=== PATIENT | male | born 1995 | race American Indian/Alaskan Native ===

== ENCOUNTER 2021-11-04 21:43 | Emergency (ER) | payer SELFPAY ==
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
[2021-11-04 23:38] VITALS: BP 128/78
== END 2021-11-04 23:38 | disposition home or self-care (01) ==
LOC: ED 21:43
DX: S46.911A Strain of unspecified muscle, fascia and tendon at shoulder and upper arm level, right arm, initial encounter (principal); M79.661 Pain in right lower leg; V87.7XXA Person injured in collision between other specified motor vehicles (traffic), initial encounter; Y93.89 Activity, other specified; Y92.488 Other paved roadways as the place of occurrence of the external cause; Y99.8 Other external cause status
CPT/HCPCS: 99282